=== PATIENT | female | born 1940 | race Caucasian/White ===

== ENCOUNTER 2021-12-07 11:37 | Inpatient (IN) ==
--- NOTE | 2021-12-07 12:27 | Emergency Department Note ---
Extremity Problem HPI General Chief complaint: Extremity Problem,Nontraumatic Stated complaint: sent her for LASIK IV Time Seen by Provider: 12/07/21 12:05 Source: patient Mode of arrival: ambulatory Limitations: no limitations History of Present Illness HPI Narrative: Narrative: 81-year-old female with a history of HIV, emphysema, diastolic heart failure, hypertension, lower extremity edema and chronic A. fib presents the ER to be evaluated for increased swelling of her lower extremities. She states this has been worsening over the past several days. She has been taking 80 of Lasix a day which was working at one time but is no longer effective. Dr. Caballero sent her over here for further evaluation and IV Lasix. She states she is always short of breath at baseline. She may be slightly more short of breath than normal. She has not had fever, chills, body aches, nausea or vomiting she denies chest pain or chest pressure. She is also currently being worked up for bladder outlet obstruction but states she is urinating normally. Related Data Home Medications Medication Instructions Recorded Confirmed calcium carbonate 500 mg calcium 1,000 mg PO QDAY 01/21/15 12/02/21 (1,250 mg) chewable tablet calcium phos,dibas-vitamin D3 800 each PO QDAY 12/10/18 12/02/21 [Vitamin D (with calcium)] B-complex with vitamin C 1 tab PO QDAY 01/21/21 12/02/21 furosemide 40 mg tablet 40 mg PO QDAY 11/18/21 12/02/21 apixaban 2.5 mg tablet (Eliquis) 2.5 mg PO BID tab 12/02/21 12/02/21 metoprolol succinate 50 mg 50 mg PO QDAY tab 12/02/21 12/02/21 tablet,extended release 24 hr pantoprazole 40 mg tablet,delayed 40 mg PO QDAY tab 12/02/21 12/02/21 release potassium chloride 10 mEq 10 meq PO QDAY tab 12/02/21 12/02/21 tablet,extended release(part/cryst) Previous Rx's Medication Instructions Recorded albuterol sulfate 90 mcg/actuation 2 puff INHALATION Q4H PRN #8.5 g 11/24/20 aerosol inhaler (Ventolin HFA) tiotropium bromide 2.5 2 puff INHALATION QDAY #4 g 11/24/20 mcg/actuation mist for inhalation (Spiriva Respimat) ibuprofen 800 mg tablet 800 mg PO TID PRN #60 tab 06/10/21 losartan 25 mg tablet 25 mg PO QDAY #90 tab 07/14/21 mecobalamin (vitamin B12) 1,000 1,000 mcg PO QDAY #90 tab 07/15/21 mcg chewable tablet (B12 Active) budesonide-formoterol HFA 160 2 puff INHALATION BID #10.2 g 10/20/21 mcg-4.5 mcg/actuation aerosol inhaler (Symbicort) Allergies Allergy/AdvReac Type Severity Reaction Status Date / Time crab Allergy Intermediate Cramping Verified 12/07/21 11:51 of the Muscles Review of Systems ROS ROS Narrative: Narrative: All systems ED: reviewed and negative except as stated. [facility] Narrative Patient History Narrative: Narrative: Medical/Surgical/Family History All Active Problems (Updated 12/07/21 @ 17:56 by Adelso Chandra PA-C) Atrial fibrillation with rapid ventricular response (Acute) CHF (congestive heart failure) (Acute) Localized swelling of both lower legs (Acute) Acute hypoxemic respiratory failure (Acute) Cellulitis of right lower extremity (Acute) Acute on chronic diastolic congestive heart failure (Acute) Atrial fibrillation with RVR (Acute) Lung nodules (Acute) Measles (Chronic ~194) Mumps (Chronic ~194) Whooping cough (Chronic ~194) Arthritis (Chronic ~2014) HIV (human immunodeficiency virus infection) (Chronic) Hemorrhoids (Chronic ~1966) Tobacco use (Chronic) Centrilobular emphysema (Chronic) Osteoarthritis of hip (Chronic) Chronic diastolic heart failure (Chronic) Nocturnal hypoxia (Chronic) HTN (hypertension) (Chronic ~2019) Hypoxia (Chronic) Chronic obstructive lung disease, type A (Chronic) Abdominal pain (Chronic) Epigastric hernia (Acute) Hydronephrosis (Chronic) Incisional hernia (Acute) Lymphadenopathy (Acute) Mediastinal lymphadenopathy (Acute) Oliguria (Acute) Dependent edema (Acute) Bilateral leg edema (Chronic) Early satiety (Chronic) Macrocytosis without anemia (Chronic) Thyroid nodule (Chronic) Pleural effusion, right (Acute) Atelectasis of right lung (Acute) 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) (Acute) Echocardiogram abnormal (Acute) Medicare annual wellness visit, subsequent (Acute) Alcohol abuse (Chronic) Atrial fibrillation (Acute) Fall (Acute) Right knee pain (Acute) Right hip pain (Acute) Decreased GFR (Acute) Medical History Abdominal pain Alcohol abuse Arthritis (~2014) Atelectasis of right lung Atrial fibrillation Atypical mole Bleeding nose BMI 25.0-25.9,adult Bronchitis Centrilobular emphysema Chronic diastolic heart failure Chronic obstructive lung disease, type A 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) Decreased GFR Dependent edema Early satiety Echocardiogram abnormal Epigastric hernia Fall Hemorrhoids (~1966) HIV (human immunodeficiency virus infection) Negative screen 07/23 HTN (hypertension) (~2018) Hydronephrosis Hydronephrosis Hypertension Hypoxia Lung nodules Lymphadenopathy Macrocytosis without anemia Measles (~1947) Mediastinal lymphadenopathy Medicare annual wellness visit, subsequent Medicare annual wellness visit, subsequent Mumps (~1947) Nocturnal hypoxia 2L oxygen at night Oliguria Osteoarthritis of hip Pleural effusion, right PNA (pneumonia) Rash Right hip pain Right knee pain Thyroid nodule Tobacco use 1 pack/day UTI (urinary tract infection) Whooping cough (~1943) Surgical History History of appendectomy (~2001) History of (~1966) History of colonoscopy (~2014) History of right hip replacement (~2009) History of tonsillectomy (~1957) 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 Sclerae non icteric HENMT: Normocephalic Atraumatic head, external nose and ears. Moist MM. CVS: +S1/S2, No murmurs or gallops. Radial pulses 2+ and equal bilat. significant lower extremity swelling with pitting edema swelling RESP: Unlabored respiratory effort . Clear to auscultation bilaterally (CTAB). No noted wheezes rales or ronchi. GI: Nontender/Nondistended (NTND), No focal tenderness MSK: 2+ pitting edema of the lower extremities, bruising from the right knee all the way down into the foot, this is old bruising. DP and PT are 2+ bilaterally with normal sensation. Patient's legs are weeping somewhat from the extensive swelling. They do not look cellulitic. Skin: Warm, Dry . No rashes or lesions . Cap refill less than 2. Neuro: No focal neurological deficit Psych: Awake, Alert, & Oriented (AAO) x3. Appropriate mood and affect . General Limitations: no limitations Course Vital Signs Vital signs: Vital Signs Temperature 98.8 F 12/07/21 11:48 Pulse Rate 122 H 12/07/21 11:48 Respiratory Rate 20 12/07/21 11:48 Blood Pressure 111/80 12/07/21 11:48 Pulse Oximetry (%) 91 12/07/21 11:48 Temperature 98.8 F 12/07/21 11:48 Pulse Rate 106 H 12/07/21 17:31 Respiratory Rate 19 12/07/21 17:31 Blood Pressure 128/96 12/07/21 17:31 Pulse Oximetry (%) 98 12/07/21 17:31 [facility] Narrative Medical decision making narrative: Narrative: Patient will be evaluated with CBC, Chem-8, Trop, BNP, EKG, chest x-ray and a bladder scan given her history of bladder outlet obstruction. CBC: Macrocytosis otherwise unremarkable Chem-8: Creatinine normal, otherwise unremarkable patient will be given 100 of Lasix Trop: Normal BNP:73242 H Bladder scan: no retention EKG: Atrial fibrillation with a rapid ventricular response at a rate of 121. Low voltage, nonspecific T wave abnormality in the lateral leads, no evidence of acute ischemia at this time. Chest x-ray:IMPRESSION: Cardiomegaly and probable interstitial pulmonary edema Interpreted and Authenticated by: Marquis Bynum 12/07/21 Patient is A. fib with RVR which is likely contributing to her lower extremity swelling. She will be given 5 mg of Lopressor IV at this time and reevaluated. Patient's heart rate is now down to low 100s. She states she cannot feel whether is fast or slow typically. She was placed on 1 L of oxygen as she was D satting below 90. Patient remains tachycardic into the 1 teens or 120 she will get her second dose of Lopressor at this time. Given she has been D satting has significant fluid overload, BNP of 10,000 with a chest x-ray that corroborates fluid overload I feel like she would benefit from inpatient diuresis and observation. She also has been in A. fib with RVR. Patient does have known congestive heart failure. Seen by [facility]. Her last echocardiogram was in July and she had an ejection fraction of 40. Hospitalist: Dr Rahman will see the patient and decide for admission Dr Rahman graciously agreed to admit the patient Lab Data Result diagrams: 12/07/21 12:32 Labs: Lab Results 12/07/21 12/07/21 12/07/21 Range/Units 12:32 12:32 12:37 WBC 7.0 (4.5-11.0) K/mcL RBC 4.17 (3.59-5.38) M/mcL Hgb 14.3 (11.2-15.7) g/dL Hct 44.0 (34.1-44.9) % POC Hct 46.0 (36-48) MCV 105.5 H (80.0-100.0) fL MCH 34.3 H (26.0-34.0) pg MCHC 32.5 (31.0-36.0) g/dL RDW 14.4 (11.5-14.5) % Plt Count 221 (140-440) K/mcL MPV 9.8 (7.4-10.4) fL Neut % (Auto) 76.1 (38.0-78.0) % Lymph % (Auto) 11.9 L (15.5-49.0) % Talbot % (Auto) 11.1 (1.0-12.0) % Eos % (Auto) 0.6 (0.0-7.0) % Baso % (Auto) 0.3 (0.0-2.0) % Lymph # (Auto) 0.84 L (1.50-4.80) K/mcL Talbot # (Auto) 0.78 (0.10-0.90) K/mcL Eos # (Auto) 0.04 (0.00-0.70) K/mcL Baso # (Auto) 0.02 (0.00-0.30) K/mcL Absolute Neutrophils 5.36 (1.80-8.00) K/mcL POC Sodium 139 (133-145) POC Potassium 4.0 (3.3-5.1) POC Chloride 94 L (96-108) POC Total CO2 36.0 H (22-30) POC BUN 37 H (6-20) POC Creatinine 1.0 (0.6-1.2) POC Glucose 106 H (70-105) POC WB Ioniz Calcium 1.04 L (1.16-1.32) NT-Pro-B Natriuret Pep 9997.0 H (<450.0) pg/mL POC Troponin I (0.02-0.08) 12/07/21 Range/Units 15:28 WBC (4.5-11.0) K/mcL RBC (3.59-5.38) M/mcL Hgb (11.2-15.7) g/dL Hct (34.1-44.9) % POC Hct (36-48) MCV (80.0-100.0) fL MCH (26.0-34.0) pg MCHC (31.0-36.0) g/dL RDW (11.5-14.5) % Plt Count (140-440) K/mcL MPV (7.4-10.4) fL Neut % (Auto) (38.0-78.0) % Lymph % (Auto) (15.5-49.0) % Talbot % (Auto) (1.0-12.0) % Eos % (Auto) (0.0-7.0) % Baso % (Auto) (0.0-2.0) % Lymph # (Auto) (1.50-4.80) K/mcL Talbot # (Auto) (0.10-0.90) K/mcL Eos # (Auto) (0.00-0.70) K/mcL Baso # (Auto) (0.00-0.30) K/mcL Absolute Neutrophils (1.80-8.00) K/mcL POC Sodium (133-145) POC Potassium (3.3-5.1) POC Chloride (96-108) POC Total CO2 (22-30) POC BUN (6-20) POC Creatinine (0.6-1.2) POC Glucose (70-105) POC WB Ioniz Calcium (1.16-1.32) NT-Pro-B Natriuret Pep (<450.0) pg/mL POC Troponin I 0.01 L (0.02-0.08) Discharge Plan Patient/Caregiver Discharge Instructions Pt seen by HYDROGEN OPERATOR/PA only: Yes Clinical Impression: Atrial fibrillation with rapid ventricular response, CHF (congestive heart failure), Localized swelling of both lower legs Patient Disposition: Xfer As Inpt ([facility]) Follow up with: Leonardo Caballero MD [Primary Care Provider] - Prescriptions: No Action B12 Active 1,000 mcg tablet,chewable 1,000 mcg PO QDAY Qty: 90 3RF Symbicort 160-4.5 mcg/actuation HFA aerosol inhaler 2 puff INHALATION BID Qty: 10.2 7RF calcium phos,dibas-vitamin D3 800 each PO QDAY 0RF Spiriva Respimat 2.5 mcg/actuation mist 2 puff INHALATION QDAY Qty: 4 12RF albuterol sulfate [Ventolin HFA] 90 mcg/actuation HFA aerosol inhaler 2 puff INHALATION Q4H PRN (Reason: shortness of breath or wheezing) Qty: 8.5 8RF losartan 25 mg tablet 25 mg PO QDAY Qty: 90 1RF pantoprazole 40 mg tablet,delayed release (DR/EC) 40 mg PO QDAY 0RF Label Comments: [NO ORIGINAL SIG] Eliquis 2.5 mg tablet 2.5 mg PO BID 0RF Label Comments: [NO ORIGINAL SIG] metoprolol succinate 50 mg tablet extended release 24 hr 50 mg PO QDAY 0RF Label Comments: [NO ORIGINAL SIG] potassium chloride 10 mEq tablet,ER particles/crystals 10 meq PO QDAY 0RF Label Comments: [NO ORIGINAL SIG] B-complex with vitamin C Tablet 1 tab PO QDAY 0RF calcium carbonate 500 MG tablet,chewable 1,000 mg PO QDAY 0RF ibuprofen 800 mg tablet 800 mg PO TID PRN (Reason: pain) Qty: 60 0RF furosemide 40 mg Tablet 40 mg PO QDAY 0RF Plan of Treatment: The patient received Lasix 100 mg IV x1 in the ER with multiple doses of Lopressor 5 mg IV x1. She will be transition to Lasix 40 mg IV twice daily and her Toprol will be increased to 75 mg p.o. twice daily for better rate control. We will monitor strict I's and O's, daily weight and daily BMP. She also has right lower extremity cellulitis for which we will start Zosyn. Awaiting patient's medication reconciliation.
[2021-12-07 12:42] LABS: POC Calcium, Ionized 1.04 (1.16-1.32)
[2021-12-07] MEDS ORDERED: METOPROLOL TARTRATE 5 MG/5 ML VIAL IV ONE ×2 (12:48→15:20)
--- NOTE | 2021-12-07 12:59 | XRay Report ---
INDICATION: Swelling TECHNIQUE: AP portable upright chest x-ray COMPARISON: Previous chest x-ray dated 09/15/2021 FINDINGS: There is cardiomegaly, essentially unchanged. There is mild peribronchial thickening and septal lines. Appearance is consistent with interstitial pulmonary edema. No alveolar edema. No parenchymal consolidation or mass. No significant pleural effusion. No mediastinal or hilar abnormality IMPRESSION: Cardiomegaly and probable interstitial pulmonary edema Interpreted and Authenticated by: Marquis Bynum 12/07/21
[2021-12-07 13:15] LABS: Basophils # (Auto) 0.02 K/mcL (0.00-0.30); Basophils % (Auto) 0.3 % (0.0-2.0); Eosinophils # (Auto) 0.04 K/mcL (0.00-0.70); Eosinophils % (Auto) 0.6 % (0.0-7.0); Hemoglobin 14.3 g/dL (11.2-15.7); Lymphocytes # (Auto) 0.84 K/mcL (1.50-4.80); Lymphocytes % (Auto) 11.9 % (15.5-49.0); Mean Cell Volume 105.5 fL (80.0-100.0); Mean Corpuscular HGB Conc 32.5 g/dL (31.0-36.0); Mean Platelet Volume 9.8 fL (7.4-10.4); Monocytes # (Auto) 0.78 K/mcL (0.10-0.90); Monocytes % (Auto) 11.1 % (1.0-12.0); Neutrophils % (Auto) 76.1 % (38.0-78.0); Platelet Count 221 K/mcL (140-440); RBC 4.17 M/mcL (3.59-5.38); Red Cell Distribution Width 14.4 % (11.5-14.5)
[2021-12-07] MEDS ORDERED: FUROSEMIDE 100 MG/10 ML VIAL IV ONE (13:33)
--- NOTE | 2021-12-07 17:22 | Internal Med History&Physical ---
HPI History of Present Illness Patient information: Note initiated : 12/07/21 at 5:16 pm Service Date, if different from initiated Date: [as above] Patient: Nasreen Jay a 81 y/o F admitted on for sent her for LASIK IV. Chief Complaint: [Worsening pedal edema] Chief complaint: Pedal edema History of present illness: Ms. Jay is a 81 year old F with a past medical history significant for CAD, COPD, chronic atrial fibrillation on Eliquis who presents to the hospital with progressive lower extremity edema over the last 2 months. She states that she is been seen by her postie and PCP without significant improvement recently. Her Lasix was increased to 80 mg daily however she did not notice improvement. Her legs swell to the point where they were weeping. She had trouble fitting into her shoes. Of note, the patient states that she had a recent fall last week as well. She is not sure about her most recent weight. She states that her dry weight normally is 123 pounds. She denies any progressive dyspnea, palpitations or chest pain. She states that she is normally on supplemental O2 at night. When asked further, she states that maybe her breathing has worsened over the last few days. On arrival she was hypoxemic in the 88-89% range. The hospitalist service was asked admit the patient for further management and evaluation of her acute on chronic diastolic congestive heart failure. She was also found to have suspected right lower extremity cellulitis. Review of Systems All systems: reviewed and no additional remarkable complaints except as stated Constitutional Constitutional: Present as per HPI EENT Eyes: Present as per HPI; Absent blurry vision Cardiovascular Cardiovascular: Present as per HPI; Absent chest pain, dyspnea, dyspnea on exertion, leg edema or palpatations Respiratory Respiratory: Present as per HPI; Absent cough, dyspnea, dyspnea on exertion, wheezing or stridor Gastrointestinal Gastrointestinal: Present as per HPI; Absent abdominal pain, diarrhea, dysphagia, hematemesis, melena, nausea or vomiting Musculoskeletal Musculoskeletal: Present as per HPI; Absent joint swelling, limited range of motion, muscle cramps, muscle weakness or myalgias Integumentary Integumentary: Present as per HPI; Absent erythema, new lesions, rash or wounds Neurological Neurological: Present as per HPI; Absent abnormal gait, behavioral changes, focal weakness, headache(s), loss of vision, numbness, sensory deficit or syncope Endocrine Endocrine: Absent change in body appearance, fatigue or heat intolerance Hematologic/Lymphatic Hematologic/Lymphatic: Present as per HPI PFSH PFSH All Active Problems (Updated 12/07/21 @ 17:21 by Santy Rahman MD) Acute hypoxemic respiratory failure (Acute) Cellulitis of right lower extremity (Acute) Acute on chronic diastolic congestive heart failure (Acute) Atrial fibrillation with RVR (Acute) Lung nodules (Acute) Measles (Chronic ~1947) Mumps (Chronic ~1947) Whooping cough (Chronic ~1943) Arthritis (Chronic ~2014) HIV (human immunodeficiency virus infection) (Chronic) Hemorrhoids (Chronic ~1966) Tobacco use (Chronic) Centrilobular emphysema (Chronic) Osteoarthritis of hip (Chronic) Chronic diastolic heart failure (Chronic) Nocturnal hypoxia (Chronic) HTN (hypertension) (Chronic ~2018) Hypoxia (Chronic) Chronic obstructive lung disease, type A (Chronic) Abdominal pain (Chronic) Epigastric hernia (Acute) Hydronephrosis (Chronic) Incisional hernia (Acute) Lymphadenopathy (Acute) Mediastinal lymphadenopathy (Acute) Oliguria (Acute) Dependent edema (Acute) Bilateral leg edema (Chronic) Early satiety (Chronic) Macrocytosis without anemia (Chronic) Thyroid nodule (Chronic) Pleural effusion, right (Acute) Atelectasis of right lung (Acute) 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) (Acute) Echocardiogram abnormal (Acute) Medicare annual wellness visit, subsequent (Acute) Alcohol abuse (Chronic) Atrial fibrillation (Acute) Fall (Acute) Right knee pain (Acute) Right hip pain (Acute) Decreased GFR (Acute) Medical History Abdominal pain Alcohol abuse Arthritis (~2014) Atelectasis of right lung Atrial fibrillation Atypical mole Bleeding nose BMI 25.0-25.9,adult Bronchitis Centrilobular emphysema Chronic diastolic heart failure Chronic obstructive lung disease, type A 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) Decreased GFR Dependent edema Early satiety Echocardiogram abnormal Epigastric hernia Fall Hemorrhoids (~1966) HIV (human immunodeficiency virus infection) Negative screen 07/23 HTN (hypertension) (~2018) Hydronephrosis Hydronephrosis Hypertension Hypoxia Lung nodules Lymphadenopathy Macrocytosis without anemia Measles (~1947) Mediastinal lymphadenopathy Medicare annual wellness visit, subsequent Medicare annual wellness visit, subsequent Mumps (~194) Nocturnal hypoxia 2L oxygen at night Oliguria Osteoarthritis of hip Pleural effusion, right PNA (pneumonia) Rash Right hip pain Right knee pain Thyroid nodule Tobacco use 1 pack/day UTI (urinary tract infection) Whooping cough (~1943) Surgical History History of appendectomy (~2001) History of (~1966) History of colonoscopy (~2014) History of right hip replacement (~2009) History of tonsillectomy (~1957) 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/17) History of total right hip replacement (~2011) Family History Mother Arthritis HTN (hypertension) Stroke Sister Arthritis Dementia Grandmother Breast cancer Maternal Father Myocardial infarction Social History (Updated 12/02/21 @ 09:54 by Jaida Fairchild RN) occupational status: retired smoking status: Current every day smoker tobacco type: cigarettes per day: 18 pack-years: 60 quit status: considering quitting counseling given: patient declined alcohol intake frequency: 0-2 drinks per day substance use type: does not use MEDS/ALLERGIES Home Medications and Allergies Home Medications Medication Instructions Recorded Confirmed Type calcium carbonate 500 mg calcium 1,000 mg PO QDAY 01/21/15 12/02/21 History (1,250 mg) chewable tablet calcium phos,dibas-vitamin D3 800 each PO QDAY 12/10/18 12/02/21 History [Vitamin D (with calcium)] albuterol sulfate 90 mcg/actuation 2 puff INHALATION Q4H PRN #8.5 g 11/24/20 12/02/21 Rx aerosol inhaler (Ventolin HFA) tiotropium bromide 2.5 2 puff INHALATION QDAY #4 g 11/24/20 12/02/21 Rx mcg/actuation mist for inhalation (Spiriva Respimat) B-complex with vitamin C 1 tab PO QDAY 01/21/21 12/02/21 History ibuprofen 800 mg tablet 800 mg PO TID PRN #60 tab 06/10/21 12/02/21 Rx losartan 25 mg tablet 25 mg PO QDAY #90 tab 07/14/21 12/02/21 Rx mecobalamin (vitamin B12) 1,000 1,000 mcg PO QDAY #90 tab 07/15/21 12/02/21 Rx mcg chewable tablet (B12 Active) budesonide-formoterol HFA 160 2 puff INHALATION BID #10.2 g 10/20/21 12/02/21 Rx mcg-4.5 mcg/actuation aerosol inhaler (Symbicort) furosemide 40 mg tablet 40 mg PO QDAY 11/18/21 12/02/21 History apixaban 2.5 mg tablet (Eliquis) 2.5 mg PO BID tab 12/02/21 12/02/21 History metoprolol succinate 50 mg 50 mg PO QDAY tab 12/02/21 12/02/21 History tablet,extended release 24 hr pantoprazole 40 mg tablet,delayed 40 mg PO QDAY tab 12/02/21 12/02/21 History release potassium chloride 10 mEq 10 meq PO QDAY tab 12/02/21 12/02/21 History tablet,extended release(part/cryst) Allergies Allergy/AdvReac Type Severity Reaction Status Date / Time crab Allergy Intermediate Cramping Verified 12/07/21 11:51 of the Muscles EXAM Constitutional Vitals: Temp Pulse Resp BP Pulse Ox 98.8 F 107 H 18 138/106 97 12/07/21 11:48 12/07/21 17:01 12/07/21 17:01 12/07/21 17:01 12/07/21 17:01 General appearance: average body habitus Head Head exam: Present atraumatic, normal inspection and normocephalic Eye Eye exam: Present EOMI, normal appearance and PERRL; Absent conjunctival injection ENT ENT exam: Present normal exam; Absent mucous membranes dry Neck Neck exam: Present full ROM; Absent lymphadenopathy Respiratory Respiratory exam: Present normal respiratory exam and decreased breath sounds; Absent CTAB, respiratory distress or wheezes Cardiovascular Cardiovascular exam: Present irregular rhythm, JVD, RRR and tachycardia GI/Abdominal GI/Abdominal exam: Present normal bowel sounds and soft; Absent diminished bowel sounds, distended, guarding, mass, rebound or tenderness Expanded Lower Extremity Exam Upper Leg exam: Present erythema Knee exam: Present erythema Neurological Exam Neurological exam: Present alert, CN II-XII intact and oriented X3 Psychiatric Psychiatric exam: Present normal affect and normal mood Skin Skin exam: Present intact and warm; Absent erythema, pallor, petechiae or rash DATA Data Completed and Pending Labs: Labs from last 24 hours 12/07/21 12/07/21 12/07/21 15:28 12:37 12:32 WBC RBC Hgb Hct POC Hct 46.0 MCV MCH MCHC RDW Plt Count MPV Neut % (Auto) Lymph % (Auto) [place] % (Auto) Eos % (Auto) Baso % (Auto) Lymph # (Auto) [place] # (Auto) Eos # (Auto) Baso # (Auto) Absolute Neutrophils POC Sodium 139 POC Potassium 4.0 POC Chloride 94 L POC Total CO2 36.0 H POC BUN 37 H POC Creatinine 1.0 POC Glucose 106 H POC WB Ioniz Calcium 1.04 L NT-Pro-B Natriuret Pep 9997.0 H POC Troponin I 0.01 L 12/07/21 12:32 WBC 7.0 RBC 4.17 Hgb 14.3 Hct 44.0 POC Hct MCV 105.5 H MCH 34.3 H MCHC 32.5 RDW 14.4 Plt Count 221 MPV 9.8 Neut % (Auto) 76.1 Lymph % (Auto) 11.9 L [place] % (Auto) 11.1 Eos % (Auto) 0.6 Baso % (Auto) 0.3 Lymph # (Auto) 0.84 L [place] # (Auto) 0.78 Eos # (Auto) 0.04 Baso # (Auto) 0.02 Absolute Neutrophils 5.36 POC Sodium POC Potassium POC Chloride POC Total CO2 POC BUN POC Creatinine POC Glucose POC WB Ioniz Calcium NT-Pro-B Natriuret Pep POC Troponin I A/P Assessment and plan (1) Tobacco use: Status: Chronic Comment: 1 pack/day (2) Centrilobular emphysema: Status: Chronic (3) Nocturnal hypoxia: Status: Chronic Comment: 2L oxygen at night (4) Atrial fibrillation with RVR: Status: Acute (5) Acute on chronic diastolic congestive heart failure: Status: Acute (6) Cellulitis of right lower extremity: Status: Acute (7) Acute hypoxemic respiratory failure: Status: Acute Narrative A/P Narrative: The patient developed worsening of her diastolic congestive heart failure in the setting of poor rate control with tachyarrhythmia. She does have a history of SVT with atrial fibrillation. Of note, she did have a recent fall with injury to the right lower extremity with baseline pedal edema. It is erythematous, wa rm to touch and tender. There is concerns for development of cellulitis. Plan of Treatment: The patient received Lasix 100 mg IV x1 in the ER with multiple doses of Lopressor 5 mg IV x1. She will be transition to Lasix 40 mg IV twice daily and her Toprol will be increased to 75 mg p.o. twice daily for better rate control. We will monitor strict I's and O's, daily weight and daily BMP. She also has right lower extremity cellulitis for which we will start Zosyn. Awaiting patient's medication reconciliation. Time Spent With Patient Time: Total time spent is greater than 50% in coordination of care (as documented) at patient's floor/unit and/or counseling patient: Total time spent with greater than 50% in coordination of care (as documented) at patient's floor/unit and/or counseling patient:: 50 - 70 minutes
[2021-12-07] MEDS ORDERED: ACETAMINOPHEN 325 MG TABLET PO PRN (18:49)
[2021-12-07] MEDS ORDERED: LACTULOSE 20 GM/30 ML ORAL.SOL PO PRN (18:49)
[2021-12-07] MEDS ORDERED: morphine 2 MG/ML VIAL IV PRN (18:49)
[2021-12-07] MEDS ORDERED: SENNOSIDES 1 TABLET PO PRN (18:49)
[2021-12-07] MEDS ORDERED: ONDANSETRON 4 MG/2 ML VIAL IV PRN (18:49)
[2021-12-07] MEDS ORDERED: METOPROLOL SUCCINATE 50 MG TAB.XL.24H PO SCH (21:00)
[2021-12-07] MEDS ORDERED: FUROSEMIDE 40 MG/4 ML VIAL IV SCH (21:00)
[2021-12-07] MEDS: DOCUSATE SODIUM 100 MG CAPSULE PO SCH (21:26)
[2021-12-07] MEDS: 0.9 % SODIUM CHLORIDE 10 ML SYRINGE IV SCH (21:26)
[2021-12-07] MEDS: PIPERACILLIN SODIUM/TAZOBACTAM 3.375 GM in DEXTROSE 5% IN WATER 50 ML IV SCH (21:26)
[2021-12-08] MEDS: PIPERACILLIN SODIUM/TAZOBACTAM 3.375 GM in DEXTROSE 5% IN WATER 50 ML IV SCH ×4 (01:04→17:49)
[2021-12-08] MEDS: 0.9 % SODIUM CHLORIDE 10 ML SYRINGE IV SCH ×4 (05:58→23:22)
[2021-12-08 06:36] LABS: Basophils # (Auto) 0.02 K/mcL (0.00-0.30); Basophils % (Auto) 0.3 % (0.0-2.0); Eosinophils # (Auto) 0.11 K/mcL (0.00-0.70); Eosinophils % (Auto) 1.9 % (0.0-7.0); Hematocrit 42.5 % (34.1-44.9); Hemoglobin 13.5 g/dL (11.2-15.7); Lymphocytes # (Auto) 1.09 K/mcL (1.50-4.80); Lymphocytes % (Auto) 18.8 % (15.5-49.0); Mean Cell Volume 106.5 fL (80.0-100.0); Mean Corpuscular HGB Conc 31.8 g/dL (31.0-36.0); Mean Platelet Volume 9.4 fL (7.4-10.4); Monocytes # (Auto) 0.81 K/mcL (0.10-0.90); Platelet Count 198 K/mcL (140-440); RBC 3.99 M/mcL (3.59-5.38); Red Cell Distribution Width 14.3 % (11.5-14.5); WBC 5.8 K/mcL (4.5-11.0)
[2021-12-08 06:58] LABS: Blood Urea Nitrogen 33 mg/dL (8-23); Calcium 8.6 mg/dL (8.6-10.4); Carbon Dioxide 38 mmol/L (22-30); Chloride 96 mmol/L (96-108); Glomerular Filtration Rate 39; Glucose 96 mg/dL (70-105)
[2021-12-08] MEDS: FUROSEMIDE 40 MG/4 ML VIAL IV SCH (09:15)
[2021-12-08] MEDS: METOPROLOL SUCCINATE 50 MG TAB.XL.24H PO SCH ×2 (09:16→21:20)
[2021-12-08] MEDS: DOCUSATE SODIUM 100 MG CAPSULE PO SCH ×2 (09:21→21:19)
--- NOTE | 2021-12-08 10:00 | Internal Med Progress Note ---
SUBJECTIVE Subjective Patient information: Note initiated : 12/08/21 at 9:58 am Service Date, if different from initiated Date: [] Patient: Nasreen Jay 81 y/o F admitted on 12/07/21 for sent her for LASIK IV. Chief Complaint: [SOB] Principal diagnosis: Atrial fibrillation, pedal edema, cellulitis Interval history: The patient was resting comfortably in bed. She was pleasant, calm and cooperative. We discussed plan of care and disposition. We discussed goals of care as well. The patient did endorse that she continues to smoke. She is interested in palliative care. Constitutional Vitals: Vital Signs Temp Pulse Resp BP Pulse Ox 97.8 F 90 18 116/79 97 12/08/21 04:08 12/08/21 08:01 12/08/21 08:01 12/08/21 08:01 12/08/21 08:01 Period Temp Pulse Resp BP Sys/Bauman Pulse Ox Last 24 Hr 97.8 F-98.8 F 90-122 16-26 109-138/60-111 88-100 Intake and Output 12/07/21 12/08/21 12/08/21 21:59 05:59 13:59 Intake Total 50 270 50 Output Total 350 1575 Balance -300 -1305 50 Weight 57.969 kg Intake & Output: Intake & Output 12/07/21 12/08/21 12/08/21 21:59 05:59 13:59 Intake Total 50 270 50 Output Total 350 1575 Balance -300 -1305 50 Weight 57.969 kg Intake: IV 50 50 50 Zosyn 3.375 gm In Dextrose 5% 50 50 50 in Water 50 ml @ 100 mls/hr IV Q6H [facility] Rx#:[id number] Oral 220 Output: Void Amount 350 1575 Other: Urine Appearance Clear Urine Color Pale Head Head exam: Present atraumatic and normal inspection Eye Eye exam: Present normal appearance ENT ENT exam: Present mucous membranes moist, normal exam and normal external ear exam Neck Neck exam: Present normal inspection Respiratory Respiratory exam: Present decreased breath sounds Cardiovascular Cardiovascular exam: Present irregular rhythm GI/Abdominal GI/Abdominal exam: Present normal bowel sounds Expanded Lower Extremity Exam Hip exam: Present erythema and swelling Back Exam Back exam: Present normal inspection Neurological Exam Neurological exam: Present alert and oriented X3 Skin Skin exam: Present intact and warm OBJ DATA Labs CBC & Chem 7: 12/08/21 05:08 12/08/21 05:08 Labs: Abnormal Lab Results 12/08/21 12/08/21 12/07/21 05:08 05:08 15:28 MCV 106.5 H MCH Lymph % (Auto) [place] % (Auto) 14.0 H Lymph # (Auto) 1.09 L POC Chloride Carbon Dioxide 38 H POC Total CO2 Anion Gap 6.0 L POC BUN BUN 33 H Creatinine 1.3 H POC Glucose POC WB Ioniz Calcium NT-Pro-B Natriuret Pep POC Troponin I 0.01 L 12/07/21 12/07/21 12/07/21 12:37 12:32 12:32 MCV 105.5 H MCH 34.3 H Lymph % (Auto) 11.9 L [place] % (Auto) Lymph # (Auto) 0.84 L POC Chloride 94 L Carbon Dioxide POC Total CO2 36.0 H Anion Gap POC BUN 37 H BUN Creatinine POC Glucose 106 H POC WB Ioniz Calcium 1.04 L NT-Pro-B Natriuret Pep 9997.0 H POC Troponin I Meds: Medications Acetaminophen (Acetaminophen 325 Mg Tablet) 650 mg PO Q6HP PRN; Protocol PRN Reason: Per Pain Protocol/Fever > 101 Docusate Sodium (Docusate Sodium 100 Mg Capsule) 100 mg PO BID [facility] Last Admin: 12/08/21 09:21 Dose: Not Given Documented by: Furosemide (Furosemide 40 Mg/4 Ml Vial) 40 mg IV DAILY [facility] Last Admin: 12/08/21 09:15 Dose: 40 mg Documented by: Piperacillin Sod/Tazobactam (Sod 3.375 gm/ Dextrose) 50 mls @ 100 mls/hr IV Q6H [facility]; Protocol Last Infusion: 12/08/21 08:00 Dose: Infused Documented by: Lactulose (Lactulose 20 Gm/30 Ml Oral.Margaret) 10 gm PO DAILYP PRN PRN Reason: Constipation Losartan Potassium (Losartan 25 Mg Tablet) 25 mg PO QDAY [facility] Metoprolol Succinate (Metoprolol Succinate 50 Mg Tab.Xl.24h) 100 mg PO BID [facility] Last Admin: 12/08/21 09:16 Dose: 100 mg Documented by: Morphine Sulfate (Morphine 2 Mg/Ml Vial) 2 mg IV Q5MIN PRN PRN Reason: Chest Pain Non-Formulary Medication (Apixaban [Eliquis]) 2.5 mg PO BID [facility] Non-Formulary Medication (Budesonide-Formoterol [Symbicort]) 2 puff INHALATION BID [facility] Non-Formulary Medication (Tiotropium [place] [Spiriva Respimat]) 2 puff INHALATION QDAY [facility] Ondansetron HCl (Ondansetron 4 Mg/2 Ml Vial) 4 mg IV Q4HP PRN; Protocol PRN Reason: Nausea And Vomiting Pantoprazole Sodium (Pantoprazole 40 Mg Tablet) 40 mg PO QDAY [facility] Senna (Sennosides 1 Tablet) 2 tab PO HSP PRN PRN Reason: Constipation Sodium Chloride (0.9 % Sodium Chloride 10 Ml Syringe) 10 ml IV Q8 [facility] Last Admin: 12/08/21 05:58 Dose: 10 ml Documented by: A/P Assessment and plan (1) Tobacco use: Status: Chronic Comment: 1 pack/day (2) Centrilobular emphysema: Status: Chronic (3) Nocturnal hypoxia: Status: Chronic Comment: 2L oxygen at night (4) Atrial fibrillation with RVR: Status: Acute (5) Acute on chronic diastolic congestive heart failure: Status: Acute (6) Cellulitis of right lower extremity: Status: Acute (7) Acute hypoxemic respiratory failure: Status: Acute Narrative A/P Narrative: The patient developed worsening of her diastolic congestive heart failure in the setting of poor rate control with tachyarrhythmia. She does have a history of SVT with atrial fibrillation. Of note, she did have a recent fall with injury to the right lower extremity with baseline pedal edema. It is erythematous, warm to touch and tender. There is concerns for development of cellulitis. Plan of Treatment: The patient received Lasix 100 mg IV x1 in the ER with multiple doses of Lopressor 5 mg IV x1. She will be transition to Lasix 40 mg IV twice daily and her Toprol will be increased to 75 mg p.o. twice daily for better rate control. We will monitor strict I's and O's, daily weight and daily BMP. She also has right lower extremity cellulitis for which we will start Zosyn. Awaiting patient's medication reconciliation. 12/08: The patient is clinically doing well. Her creatinine is gone up slightly to 1.3. Overall she is -1.6 L thus far. I have decreased her Lasix to 40 mg once daily and increased her Toprol XL 100 mg twice daily. Her medication reconciliation was performed and she will resume her home Eliquis for anticoagulation. Wound care is involved. Her right lower extremity remains edematous and erythematous. We will continue Zosyn. Time Spent With Patient Time: Total time spent is greater than 50% in coordination of care (as documented) at patient's floor/unit and/or counseling patient: Total time spent with greater than 50% in coordination of care (as documented) at patient's floor/unit and/or counseling patient:: 25 - 35 minutes
--- NOTE | 2021-12-08 12:36 | EKG ---
[facility] Minor Care Test Date: 2021-12-07 Pat Name: Nasreen Jay Department: ED Room: Gender: Female [employer] Helper: : 1940 Requested By: Adelso Chandra Order Number: [id number] Reading MD: Christian Arnold Measurements Intervals [place] Rate: 121 P: VT: QRS: 77 QRSD: 87 T: 57 QT: 342 QTc: 486 Interpretive Statements Atrial fibrillation Borderline low voltage, extremity leads Abnormal R-wave progression, late transition Nonspecific T abnormalities, lateral leads Borderline prolonged QT interval Electronically Signed On 12-08-2021 12:35:55 PDT by Christian Arnold /store/M0/[id number]
[2021-12-08] MEDS: APIXABAN 5 MG TABLET PO SCH (21:19)
[2021-12-08] MEDS: Budesonide-Formoterol [Symbicort] 160-4.5 mcg Inhaler INH SCH (22:41)
[2021-12-08] MEDS ORDERED: ALBUTEROL SULFATE 200 PUFF INHALER INH PRN (22:46)
[2021-12-09] MEDS: PIPERACILLIN SODIUM/TAZOBACTAM 3.375 GM in DEXTROSE 5% IN WATER 50 ML IV SCH ×3 (03:41→14:42)
[2021-12-09] MEDS: 0.9 % SODIUM CHLORIDE 10 ML SYRINGE IV SCH (04:11)
[2021-12-09] MEDS ORDERED: PANTOPRAZOLE 40 MG TABLET PO SCH (07:30)
[2021-12-09 07:55] LABS: Blood Urea Nitrogen 34 mg/dL (8-23); Calcium 8.5 mg/dL (8.6-10.4); Carbon Dioxide 34 mmol/L (22-30); Chloride 94 mmol/L (96-108); Glomerular Filtration Rate 43; Glucose 86 mg/dL (70-105)
[2021-12-09] MEDS ORDERED: Tiotropium Bromide [Spiriva Respimat] 2.5 mcg Inhaler INH SCH (09:00)
[2021-12-09] MEDS ORDERED: LOSARTAN 25 MG TABLET PO SCH (09:00)
[2021-12-09] MEDS: FUROSEMIDE 40 MG/4 ML VIAL IV SCH (09:13)
[2021-12-09] MEDS: DOCUSATE SODIUM 100 MG CAPSULE PO SCH (09:13)
[2021-12-09] MEDS: APIXABAN 5 MG TABLET PO SCH (09:13)
[2021-12-09] MEDS: Budesonide-Formoterol [Symbicort] 160-4.5 mcg Inhaler INH SCH (10:15)
[2021-12-09] MEDS: METOPROLOL SUCCINATE 50 MG TAB.XL.24H PO SCH (10:15)
--- NOTE | 2021-12-09 12:17 | Discharge Summary ---
Discharge Provider Provider IMPORTANT FOLLOW-UP INFORMATION FOR PCP: 1. Follow-up with cardiology 2. Follow-up with palliative care as the patient requires supplemental O2 22/01 and continues to smoke Patient information: Note initiated : 12/09/21 at 12:16 pm Service Date, if different from initiated Date: [] Patient: Nasreen Jay a 81 y/o F admitted on 12/07/21 for sent her for LASIK IV. Chief Complaint: Worsening pedal edema Date of admission: 12/07/21 18:19 Discharge date: 12/09/21 Primary care physician: Leonardo Caballero MD Admitting clinician: Santy Rahman Consults: 12/07/21 Consult to Physician [CONS] Stat Comment: Consulting Provider: Santy Rahman Reason For Exam: Physician to Consult Discharging clinician: Santy Rahman COURSE Hospital Course Hospital course: Ms. Jay is a 81 year old F with a past medical history significant for CAD, COPD, chronic atrial fibrillation on Eliquis who presents to the hospital with progressive lower extremity edema over the last 2 months. She states that she is been seen by her lighting adviser and PCP without significant improvement recently. Her Lasix was increased to 80 mg daily however she did not notice improvement. Her legs swell to the point where they were weeping. She had trouble fitting into her shoes. Of note, the patient states that she had a re cent fall last week as well. She is not sure about her most recent weight. She states that her dry weight normally is 123 pounds. She denies any progressive dyspnea, palpitations or chest pain. She states that she is normally on supplemental O2 at night. When asked further, she states that maybe her breathing has worsened over the last few days. On arrival she was hypoxemic in the 88-89% range. The hospitalist service was asked admit the patient for further management and evaluation of her acute on chronic diastolic congestive heart failure. She was also found to have suspected right lower extremity cellulitis. The patient developed worsening of her diastolic congestive heart failure in the setting of poor rate control with tachyarrhythmia. She does have a history of SVT with atrial fibrillation. Of note, she did have a recent fall with injury to the right lower extremity with baseline pedal edema. It is erythematous, warm to touch and tender. There is concerns for development of cellulitis. Plan of Treatment: The patient received Lasix 100 mg IV x1 in the ER with multiple doses of Lopressor 5 mg IV x1. She will be transition to Lasix 40 mg IV twice daily and her Toprol will be increased to 75 mg p.o. twice daily for better rate control. We will monitor strict I's and O's, daily weight and daily BMP. She also has right lower extremity cellulitis for which we will start Zosyn. Awaiting patient's medication reconciliation. 12/08: The patient is clinically doing well. Her creatinine is gone up slightly to 1.3. Overall she is -1.6 L thus far. I have decreased her Lasix to 40 mg once daily and increased her Toprol XL 100 mg twice daily. Her medication reconciliation was performed and she will resume her home Eliquis for anticoagulation. Wound care is involved. Her right lower extremity remains edematous and erythematous. We will continue Zosyn. 12/09: The patient was diuresed aggressively with IV Lasix twice daily which helped with her pulmonary edema and pedal edema. She will be transition to Toprol-XL 100 mg p.o. twice daily for better rate control in terms of her underlying atrial fibrillation. She will complete 14-day course of antibiotics and will be transition from Zosyn to doxycycline. Of note, she will require supplemental O2 during the day as well now. it is recommended she follow-up with her primary care physician within 1 week's time Discharge diagnosis: Acute hypoxemic resp failure, HFpEF, AF w/ RVR, RLE cellululitis Time Spent with Patient Time attestation: Total time spent providing and/or coordinating discharge services: Time spent: Greater than 30 minutes EXAM Constitutional Vitals: Temp Pulse Resp BP Pulse Ox 98.5 F 86 17 100/63 97 12/09/21 08:02 12/09/21 00:01 12/09/21 10:06 12/09/21 10:06 12/09/21 10:06 General appearance: average body habitus Head Head exam: Present atraumatic, normal inspection and normocephalic Eye Eye exam: Present EOMI, normal appearance and PERRL; Absent conjunctival injection ENT ENT exam: Present normal exam; Absent mucous membranes dry Neck Neck exam: Present full ROM; Absent lymphadenopathy Respiratory Respiratory exam: Present normal respiratory exam and decreased breath sounds; Absent CTAB, respiratory distress or wheezes Cardiovascular Cardiovascular exam: Present irregular rhythm and RRR; Absent normal rate and rhythm or JVD GI/Abdominal GI/Abdominal exam: Present normal bowel sounds and soft; Absent diminished bowel sounds, distended, guarding, mass, rebound or tenderness Neurological Exam Neurological exam: Present alert, CN II-XII intact and oriented X3 Psychiatric Psychiatric exam: Present normal affect and normal mood Skin Skin exam: Present intact and warm; Absent erythema, pallor, petechiae or rash Discharge Data Data Completed and Pending Labs on day of discharge: Labs from last 24 hours 12/09/21 05:40 Sodium 139 Potassium 3.6 Chloride 94 L Carbon Dioxide 34 H Anion Gap 11.0 BUN 34 H Creatinine 1.2 H GFR Calculation 43 Glucose 86 Calcium 8.5 L Discharge Plan Patient/Caregiver Discharge Instructions Activity: as per physical therapy Instructions: Heart Failure (GEN), How to Stop Smoking (GEN), Cellulitis (GEN), Cigarette Smoking and Your Health (GEN), Using Oxygen at Home (GEN), Fall Prevention (GEN) Prescriptions: New metoprolol succinate 50 mg Tablet Extended Release 24 Hr 100 mg PO BID Qty: 60 0RF doxycycline hyclate 100 mg capsule 100 mg PO BID Qty: 20 0RF Continued B12 Active 1,000 mcg tablet,chewable 1,000 mcg PO QDAY Qty: 90 3RF Symbicort 160-4.5 mcg/actuation HFA aerosol inhaler 2 puff INHALATION BID Qty: 10.2 7RF calcium phos,dibas-vitamin D3 800 each PO QDAY 0RF Spiriva Respimat 2.5 mcg/actuation mist 2 puff INHALATION QDAY Qty: 4 12RF albuterol sulfate [Ventolin HFA] 90 mcg/actuation HFA aerosol inhaler 2 puff INHALATION Q4H PRN (Reason: shortness of breath or wheezing) Qty: 8.5 8RF losartan 25 mg tablet 25 mg PO QDAY Qty: 90 1RF pantoprazole 40 mg tablet,delayed release (DR/EC) 40 mg PO QDAY 0RF Label Comments: [NO ORIGINAL SIG] Eliquis 2.5 mg tablet 2.5 mg PO BID 0RF Label Comments: [NO ORIGINAL SIG] potassium chloride 10 mEq tablet,ER particles/crystals 10 meq PO QDAY 0RF Label Comments: [NO ORIGINAL SIG] B-complex with vitamin C Tablet 1 tab PO QDAY 0RF calcium carbonate 500 MG tablet,chewable 1,000 mg PO QDAY 0RF ibuprofen 800 mg tablet 800 mg PO TID PRN (Reason: pain) Qty: 60 0RF furosemide 40 mg Tablet 40 mg PO QDAY 0RF Discontinued metoprolol succinate 50 mg tablet extended release 24 hr 50 mg PO QDAY 0RF Label Comments: [NO ORIGINAL SIG] Other Ambulatory Orders: Home Oxygen Order (Routine) Location: None Selected Ordered By: Santy Rahman Follow Up Plan Follow up with: Leonardo Caballero MD [Primary Care Provider] - 12/15/21 5:00 pm (Please check in at 4:45 pm) Patient Disposition: Home, Self-Care Rehab Potential: Fair I certify that the patient requires SNF services: No Overall status at discharge: patient is progressing back to baseline Discharge Orders: Discharge Order (Routine); Ordered 12/09/21 Ordered By: Santy Rahman
== END 2021-12-09 13:55 | disposition home or self-care (01) | DRG 189 ==
LOC: ED 11:37 → ICU 18:19
PROVIDERS: ADMIT Student in an Organized Health Care Education/Training Program; ATTEND Student in an Organized Health Care Education/Training Program